=== PATIENT | female | born 1950 | race Caucasian/White ===

== ENCOUNTER 2020-10-01 14:13 | Inpatient (IN) | payer MEDICARE ==
[~2020-10-01] VITALS: Ht 165.1 cm; Wt 98.7 kg
[~2020-10-01 14:13] MED LIST: ASPIRIN81 MG PO; BACTRIM D.S. TAB1 EA PO; BETAPACE80 MG PO; BRILINTA 90 MG90 MG PO; BRILINTA90 MG PO; CHLORTHALIDONE25 MG PO; CLEOCIN HCL300 MG PO; COREG 12.5MG12.5 MG PO; CRESTOR20 MG PO; ENULOSE10 GM/15 M PO; FOLIC ACID1 MG PO; FUROSEMIDE20 MG PO; HUMALOG MI100 UNIT/3 SC; HYDROCODON-ACE1 EAC4 PO; IBUPROFEN800 MG PO; IMDUR ER TAB 6060 MG PO; JANUMET 50-5001 EACH PO; KEFLEX CAP 500500 MG PO; KLONOPIN TAB 00.5 MG PO; LEVEMIR100 UNIT/1 SQ; LIORESAL TAB 1010 MG PO; LISINOPRIL40 MG PO; LOPRESSOR50 MG PO; METHOTREXATE2.5 MG PO; MIRALAX17 GM PO; NEURONTIN 400400 MG PO; NEURONTIN400 MG PO; NEURONTIN600 MG PO; NITROLINGUAL12 GM SL; NORCO 7.5-3251 EACH PO; NORVASC10 MG PO; NOVOLOG 10100 UNITS/ INJ; PLAQUENIL 200200 MG PO; PREDNISONE 50 M50 MG PO; PREDNISONE10 MG PO; REGLAN5 MG PO; STOOL SOFTENER PO; TRAZODONE HCL100 MG PO; ULTRAM50 MG PO; VENTOLIN HFA 66.7 GM INH; XARELTO10 MG PO; ZESTRIL 40 MG T40 MG PO
[2020-10-01 14:44] LABS: HEMOGLOBIN 13.2 gm/dl (12.3-15.3); RED BLOOD COUNT 4.76 M/UL (4.00-5.10); WHITE BLOOD COUNT 6.5 K/UL (4.5-11.0)
[2020-10-01 15:08] LABS: BUN/CREATININE RATIO 13 (0-10)
[2020-10-01] MEDS ORDERED: FLONASE ALLER15.8 ML (16:58)
[2020-10-01] MEDS ORDERED: HYDROCODON-ACE1 EAC2 PO (16:59)
[2020-10-01] MEDS ORDERED: RANEXA500 MG PO (17:00)
[2020-10-01] MEDS ORDERED: PROTONIX 40 MG40 M1 PO (17:01)
[2020-10-01] MEDS ORDERED: EPINEPHRIN0.3 MG/0.3 INJ (17:02)
[2020-10-01] MEDS ORDERED: LEXAPRO10 MG PO (17:43)
[2020-10-01] MEDS ORDERED: KLONOPIN TAB 00.5 MG PO (17:45)
[2020-10-01] MEDS ORDERED: PREDNISONE 5 MG5 MG PO (17:46)
[2020-10-01 18:24] LABS: HEMOGLOBIN 11.9 gm/dl (12.3-15.3); RED BLOOD COUNT 4.54 M/UL (4.00-5.10); WHITE BLOOD COUNT 6.9 K/UL (4.5-11.0)
[2020-10-01 18:46] LABS: BUN/CREATININE RATIO 34 (0-10)
[2020-10-02 02:53] LABS: HEMOGLOBIN 12.7 gm/dl (12.3-15.3); RED BLOOD COUNT 4.62 M/UL (4.00-5.10); WHITE BLOOD COUNT 7.2 K/UL (4.5-11.0)
[2020-10-03 12:08] LABS: HEMOGLOBIN 11.8 gm/dl (12.3-15.3); RED BLOOD COUNT 4.46 M/UL (4.00-5.10); WHITE BLOOD COUNT 6.3 K/UL (4.5-11.0)
[2020-10-03 12:29] LABS: BUN/CREATININE RATIO 28 (0-10)
[2020-10-04 09:09] LABS: HEMOGLOBIN 11.6 gm/dl (12.3-15.3); RED BLOOD COUNT 4.35 M/UL (4.00-5.10); WHITE BLOOD COUNT 5.7 K/UL (4.5-11.0)
[2020-10-04 09:28] LABS: BUN/CREATININE RATIO 23 (0-10)
[2020-10-05 08:52] LABS: HEMOGLOBIN 11.8 gm/dl (12.3-15.3); RED BLOOD COUNT 4.31 M/UL (4.00-5.10); WHITE BLOOD COUNT 5.6 K/UL (4.5-11.0)
[2020-10-05 08:57] LABS: BUN/CREATININE RATIO 18 (0-10)
[2020-10-06 03:53] LABS: HEMOGLOBIN 11.3 gm/dl (12.3-15.3); RED BLOOD COUNT 4.17 M/UL (4.00-5.10); WHITE BLOOD COUNT 5.5 K/UL (4.5-11.0)
[2020-10-06 04:02] LABS: BUN/CREATININE RATIO 21 (0-10)
[2020-10-07 09:57] LABS: HEMOGLOBIN 11.5 gm/dl (12.3-15.3); RED BLOOD COUNT 4.22 M/UL (4.00-5.10); WHITE BLOOD COUNT 5.6 K/UL (4.5-11.0)
[2020-10-07 10:19] LABS: BUN/CREATININE RATIO 26 (0-10)
[2020-10-07] MEDS ORDERED: KEPPRA 500 MG500 MG PO (10:39)
[2020-10-07] MEDS ORDERED: ASPIRIN EC81 MG PO (10:39)
[2020-10-07] MEDS ORDERED: LASIX20 MG PO (10:41)
== END 2020-10-07 14:00 | disposition home health service (06) | DRG 917 ==
LOC: ER1 14:13 → CDU 16:11 → PROG CARE 16:11 → CDU 16:11 → PROG CARE 18:13
PROVIDERS: Emergency Medicine; Internal Medicine; Physician Assistant; ADMIT Internal Medicine Infectious Disease
DX: T42.6X1A Poisoning by other antiepileptic and sedative-hypnotic drugs, accidental (unintentional), initial encounter (principal); G92 Toxic encephalopathy; J18.9 Pneumonia, unspecified organism; J96.01 Acute respiratory failure with hypoxia; Z20.822 Contact with and (suspected) exposure to COVID-19; I50.31 Acute diastolic (congestive) heart failure; N17.9 Acute kidney failure, unspecified; F11.20 Opioid dependence, uncomplicated; I47.2 Ventricular tachycardia; I31.3 Pericardial effusion (noninflammatory); I25.10 Atherosclerotic heart disease of native coronary artery without angina pectoris; E11.9 Type 2 diabetes mellitus without complications; M79.7 Fibromyalgia; G89.4 Chronic pain syndrome; G35 Multiple sclerosis; G40.909 Epilepsy, unspecified, not intractable, without status epilepticus; Z96.642 Presence of left artificial hip joint; I11.0 Hypertensive heart disease with heart failure; F17.210 Nicotine dependence, cigarettes, uncomplicated; E78.5 Hyperlipidemia, unspecified; K21.9 Gastro-esophageal reflux disease without esophagitis; Z85.828 Personal history of other malignant neoplasm of skin; Y92.89 Other specified places as the place of occurrence of the external cause; Z90.710 Acquired absence of both cervix and uterus; Z79.4 Long term (current) use of insulin; Z88.0 Allergy status to penicillin; Z88.8 Allergy status to other drugs, medicaments and biological substances; Z95.810 Presence of automatic (implantable) cardiac defibrillator; Z90.49 Acquired absence of other specified parts of digestive tract; Z82.49 Family history of ischemic heart disease and other diseases of the circulatory system; Z83.3 Family history of diabetes mellitus; Z80.9 Family history of malignant neoplasm, unspecified; Z80.8 Family history of malignant neoplasm of other organs or systems; Y92.9 Unspecified place or not applicable; Z79.82 Long term (current) use of aspirin; Z79.01 Long term (current) use of anticoagulants; Z88.7 Allergy status to serum and vaccine; Z91.041 Radiographic dye allergy status
CPT/HCPCS: 36415; 36600; 70450; 71045; 71046; 71250; 80048; 80053; 80171; 80307; 81001; 82140; 82150; 82550; 82553; 82803; 82962; 83605; 83690; 83735; 83874; 83880; 84100; 84439; 84443; 84484; 85007; 85025; 85027; 85610; 85730; 87040; 87086; 93005; 94640; 94760; 95816; 96374; 96375; 96376; 97116-GP-CQ; 97162; 97166; 99285; G0378; G0480; J0360; J0456; J0696; J1940; J2060; J2310; J2405; J7030; U0002

== ENCOUNTER 2021-11-24 14:36 | Inpatient (IN) | payer MEDICARE ==
[~2021-11-24] VITALS: Ht 160 cm; Wt 97.1 kg
[~2021-11-24 14:36] MED LIST changes: +ASPIRIN EC81 MG PO; +EPINEPHRIN0.3 MG/0.3 INJ; +FLONASE ALLER15.8 ML; +HYDROCODON-ACE1 EAC2 PO; +KEPPRA 500 MG500 MG PO; +LASIX20 MG PO; +LEXAPRO10 MG PO; -NEURONTIN600 MG PO; +NEURONTIN800 MG PO; +PREDNISONE 5 MG5 MG PO; +PROTONIX 40 MG40 M1 PO; +RANEXA500 MG PO
[2021-11-24 15:36] LABS: HEMOGLOBIN 14.2 gm/dl (12.3-15.3); RED BLOOD COUNT 5.05 M/UL (4.00-5.10); WHITE BLOOD COUNT 3.1 K/UL (4.5-11.0)
[2021-11-24 16:00] LABS: BUN/CREATININE RATIO 30 (0-10)
[2021-11-25] MEDS ORDERED: TRAMADOL HCL50 MG PO (09:13)
[2021-11-25] MEDS ORDERED: BACLOFEN10 MG PO (09:13)
[2021-11-25] MEDS ORDERED: TRAZODONE HCL100 MG PO (09:14)
[2021-11-25] MEDS ORDERED: PROBIOTIC DIGE1 EACH PO (09:16)
[2021-11-26 06:30] LABS: HEMOGLOBIN 13.3 gm/dl (12.3-15.3); RED BLOOD COUNT 4.79 M/UL (4.00-5.10)
[2021-11-26 06:33] LABS: WHITE BLOOD COUNT 5.4 K/UL (4.5-11.0)
[2021-11-26 06:52] LABS: BUN/CREATININE RATIO 33 (0-10)
[2021-11-27 07:34] LABS: HEMOGLOBIN 12.6 gm/dl (12.3-15.3); RED BLOOD COUNT 4.66 M/UL (4.00-5.10); WHITE BLOOD COUNT 5.7 K/UL (4.5-11.0)
[2021-11-27 07:57] LABS: BUN/CREATININE RATIO 42 (0-10)
[2021-11-28 06:58] LABS: HEMOGLOBIN 12.7 gm/dl (12.3-15.3); RED BLOOD COUNT 4.55 M/UL (4.00-5.10); WHITE BLOOD COUNT 6.4 K/UL (4.5-11.0)
[2021-11-28 07:38] LABS: BUN/CREATININE RATIO 41 (0-10)
[2021-11-29 10:43] LABS: HEMOGLOBIN 12.3 gm/dl (12.3-15.3); RED BLOOD COUNT 4.49 M/UL (4.00-5.10); WHITE BLOOD COUNT 4.9 K/UL (4.5-11.0)
[2021-11-29 10:53] LABS: BUN/CREATININE RATIO 46 (0-10)
--- NOTE | 2021-11-29 22:13 | NUR ---
AFTER SPIKING AND STARTING PT'S IV DOXYCYCLINE, PT REFUSED MEDICATION. PT STATING THAT HER HAND WAS HURTING. RN AND JONAH MOTNOYA FLUSHED PT'S IV MULTIPLE TIMES WITHOUT DIFFICULTY. IV FLUSHING WITH NO COMPLICATIONS. NO SWELLING OR REDNESS AT IV SITE. HOWEVER, PT STILL REFUSED DOXYCYCLINE ALONG WITH HER LANTUS AND ATORVASTATIN.
[2021-11-30 04:52] LABS: HEMOGLOBIN 11.9 gm/dl (12.3-15.3); RED BLOOD COUNT 4.29 M/UL (4.00-5.10); WHITE BLOOD COUNT 4.5 K/UL (4.5-11.0)
[2021-11-30 05:24] LABS: BUN/CREATININE RATIO 40 (0-10)
[2021-11-30] MEDS ORDERED: HUMIBID LA TAB600 MG PO (16:09)
[2021-11-30] MEDS ORDERED: ATORVASTATIN CA20 MG PO (16:09)
[2021-11-30] MEDS ORDERED: PROVENTIL HFA6.7 GM INH (16:09)
[2021-11-30] MEDS ORDERED: ASPIRIN EC81 MG PO (16:09)
[2021-11-30] MEDS ORDERED: DOXYCYCLINE HY100 MG PO (16:09)
[2021-11-30] MEDS ORDERED: IBUPROFEN400 MG PO (16:09)
== END 2021-11-30 20:53 | disposition home or self-care (01) | DRG 178 ==
LOC: ER1 14:36 → CDU 22:59 → MED SURG 4 22:59
PROVIDERS: Emergency Medicine; Internal Medicine; ADMIT Internal Medicine
PROC: B24BZZZ Ultrasonography of Heart with Aorta (ICD-10-PCS; principal; 2021-11-25)
PROC: 8E0ZXY6 Isolation (ICD-10-PCS; 2021-11-25)
DX: U07.1 COVID-19 (principal); F11.20 Opioid dependence, uncomplicated; I25.10 Atherosclerotic heart disease of native coronary artery without angina pectoris; F41.9 Anxiety disorder, unspecified; I10 Essential (primary) hypertension; G35 Multiple sclerosis; G89.4 Chronic pain syndrome; Z96.642 Presence of left artificial hip joint; G40.909 Epilepsy, unspecified, not intractable, without status epilepticus; E11.65 Type 2 diabetes mellitus with hyperglycemia; E78.5 Hyperlipidemia, unspecified; K21.9 Gastro-esophageal reflux disease without esophagitis; J44.9 Chronic obstructive pulmonary disease, unspecified; E66.9 Obesity, unspecified; N30.90 Cystitis, unspecified without hematuria; J40 Bronchitis, not specified as acute or chronic; M79.10 Myalgia, unspecified site; Z95.810 Presence of automatic (implantable) cardiac defibrillator; Z86.73 Personal history of transient ischemic attack (TIA), and cerebral infarction without residual deficits; Z91.030 Bee allergy status; Z90.49 Acquired absence of other specified parts of digestive tract; Z87.891 Personal history of nicotine dependence; Z95.1 Presence of aortocoronary bypass graft; Z88.8 Allergy status to other drugs, medicaments and biological substances; Z79.82 Long term (current) use of aspirin; Z98.890 Other specified postprocedural states; Z88.0 Allergy status to penicillin; Z88.5 Allergy status to narcotic agent; Z82.49 Family history of ischemic heart disease and other diseases of the circulatory system; Z91.041 Radiographic dye allergy status; Z79.899 Other long term (current) drug therapy; Z90.710 Acquired absence of both cervix and uterus; Z68.37 Body mass index [BMI] 37.0-37.9, adult
CPT/HCPCS: ECHO; 36415; 71045; 80048; 80053; 81001; 82550; 82553; 82962; 83735; 83880; 84484; 85025; 85027; 85379; 85610; 85730; 87077; 87086; 87186; 93005; 93306; 94640; 94664; 94760; 94762; 96372; 97161; 97530; 99285; G0378; J1650; J7030; U0002